=== PATIENT | male | born 1985 ===

== ENCOUNTER 2021-05-20 13:05 | Emergency (ER) | payer SELFPAY ==
[2021-05-20 13:16] VITALS: BP 153/96
[2021-05-20] MEDS ORDERED: ONDANSETRON 4 MG/2 ML INJ IV ONE (13:34)
[2021-05-20] MEDS ORDERED: fentaNYL 100 MCG/2 ML INJ IV ONE (13:34)
[2021-05-20] MEDS ORDERED: SODIUM CHLORIDE 0.9% 1000 ML 1,000 ML IV ONE (13:34)
[2021-05-20] MEDS ORDERED: TETANUS,DIPH,PERTUSS(ACELL) VACCINE 0.5 ML SYRINGE IM ONE (13:40)
[2021-05-20] MEDS ORDERED: ceFAZolin/NS 1 GM/50 ML 1 GM/50 ML BAG IV ONE (13:41)
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
[2021-05-20 15:26] LABS: Basophils % (Auto) 0.1 % (0.0-1.8); Eosinophils % (Auto) 0.2 % (0.0-4.3); Hematocrit 44.4 % (35.5-45.6); Lymphocytes # (Auto) 1.3 K/mm3 (1.2-5.4); Lymphocytes % (Auto) 9.3 % (13.4-35.0); Mean Corpuscular HGB Conc 32 % (32-34); Mean Corpuscular Volume 95 fl (84-94); Monocytes % (Auto) 7.1 % (0.0-7.3); Platelet Count 256 K/mm3 (140-440); Red Blood Count 4.66 M/mm3 (3.65-5.03); Red Cell Distribution Width 14.3 % (13.2-15.2)
[2021-05-20 15:40] LABS: Blood Urea Nitrogen 12 mg/dL (9-20); Calcium 8.2 mg/dL (8.4-10.2); Hemolysis Index 8
[2021-05-20 15:42] LABS: BUN/Creatinine Ratio 20
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
== END 2021-05-21 01:17 | disposition home or self-care (01) ==
LOC: ED 13:05
DX: S71.131A Puncture wound without foreign body, right thigh, initial encounter (principal); F17.200 Nicotine dependence, unspecified, uncomplicated; Z79.899 Other long term (current) drug therapy; W34.09XA Accidental discharge from other specified firearms, initial encounter; Y93.89 Activity, other specified; Y92.89 Other specified places as the place of occurrence of the external cause; Y99.8 Other external cause status
CPT/HCPCS: 36415; 73552; 73706; 80048; 85025; 86850; 86900; 86901; 90471; 90715; 96365; 96375; 99284; J0690; J2405; J3010; J7030; Q9967; Q0162